=== PATIENT | female | born 1955 | race Caucasian/White ===

== ENCOUNTER 2017-04-02 17:46 | Emergency (ER) | payer BC ==
[2017-04-02 17:54] VITALS: BP 145/95
[2017-04-02] MEDS ORDERED: Ipratropium 0.5MG/2.5ML NEB* 0.5 MG/2.5 ML NEB.SOLN INH ONE (18:07)
[2017-04-02] MEDS ORDERED: Albuterol 2.5 MG/3 ML NEB.SOL* (0.083%) INH ONE (18:07)
--- NOTE | 2017-04-02 18:16 | UC ---
Respiratory Complaint HPI - HPI Summary HPI Summary: 62 yo female with a 2 day hx of cough/wheezing no CP or SOB no F/C no n/v/d - History of Current Complaint Chief Complaint: UCRespiratory Stated Complaint: THROAT CONGESTION Time Seen by Provider: 04/02/17 17:58 Hx Obtained From: Patient Onset/Duration: Gradual Onset, Lasting Days Timing: Constant Severity Initially: Mild Severity Currently: Moderate Pain Intensity: 2 Pain Scale Used: 0-10 Numeric Character: Cough: Nonproductive Aggravating Factors: Nothing Alleviating Factors: Bronchodilator Associated Signs And Symptoms: Positive: Wheezing - Allergies/Home Medications Allergies/Adverse Reactions: Allergies Allergy/AdvReac Type Severity Reaction Status Date / Time Chlorhexidine Allergy Severe Blisters Verified 04/02/17 17:54 [From ChloraPrep One Step] Isopropyl Alcohol Allergy Severe Blisters Verified 04/02/17 17:54 [From ChloraPrep One Step] Cefazolin [From Ancef] Allergy ANAPHYLATIC Verified 04/02/17 17:54 RXN Molds & Smuts Allergy UPPER RESP Verified 04/02/17 17:54 SUNFLOWERS Allergy ANAPHYLACTIC Uncoded 06/11/13 15:54 RXN Home Medications: Home Medications Acetaminophen [Mapap] 1,000 mg PO PRN 04/02/17 [History] Albuterol HFA INHALER* [Ventolin HFA Inhaler*] PRN 04/02/17 [History] Famotidine TAB* [Pepcid 20 MG TAB*] 10 mg PO PRN 04/02/17 [History] diPHENhydraMINE PO* [Benadryl PO 25 MG TAB*] 25 mg PO PRN 04/02/17 [History] PMH/Surg Hx/FS Hx/Imm Hx Previously Healthy: Yes - DJD Respiratory History: Asthma - Surgical History Surgical History: Yes Surgery Procedure, Year, and Place: TOTAL Rt KNEE 2005, Lt TOTAL KNEE-= 2009 [facility] REPAIR - TOTAL OF 5 KNEE SURGERIES [facility] - 1989 GASTROPLASTY - 1987 TUBAL LIGATION - 1980 - Social History Alcohol Use: None Substance Use Type: None Smoking Status (MU): Never Smoked Tobacco Review of Systems Constitutional: Negative Skin: Negative Eyes: Negative ENT: Negative Respiratory: Cough Cardiovascular: Negative Gastrointestinal: Negative Genitourinary: Negative Motor: Negative Neurovascular: Negative Musculoskeletal: Arthralgia Neurological: Negative Psychological: Negative All Other Systems Reviewed And Are Negative: Yes Physical Exam Triage Information Reviewed: Yes Appearance: Well-Appearing, No Pain Distress, Well-Nourished Vital Signs: Initial Vital Signs Temp 99.7 F 04/02/17 17:49 Pulse 106 04/02/17 17:49 Resp 20 04/02/17 17:49 BP 145/95 04/02/17 17:49 Pulse Ox 100 04/02/17 17:49 Vital Signs Reviewed: Yes Eyes: Positive: Conjunctiva Clear ENT: Positive: Hearing grossly normal, TMs normal. Negative: Nasal congestion, Nasal drainage, Tonsillar exudate, Trismus, Muffled/hoarse voice Neck: Positive: Supple, Nontender Respiratory: Positive: No respiratory distress, No accessory muscle use, Wheezing Cardiovascular: Positive: RRR, No Murmur Musculoskeletal: Positive: Strength Intact, No Edema Neurological: Positive: Alert Psychological Exam: Normal Skin Exam: Normal UC Diagnostic Evaluation - Laboratory O2 Sat by Pulse Oximetry: 100 - normal/hypoxic Re-Evaluation - Re-Evaluation First Eval Re-Evaluation Time: 18:41 Change: Improved - subjectively much better/lungs CTA Respiratory Course/Dx - Differential Dx/Diagnosis Provider Diagnoses: bronchospasm-suspect allergen mediated Discharge - Discharge Plan Condition: Stable Disposition: HOME Prescriptions: Prednisone [Deltasone] 40 mg PO DAILY #6 tab Patient Education Materials: Bronchospasm (ED) Referrals: Franci Ewing MD [Primary Care Provider] - 3 Days Additional Instructions: use your inhaler as directed recheck for new or worsening symptoms
[2017-04-02] MEDS ORDERED: predniSONE TAB* 20 MG PO ONE (18:39)
== END 2017-04-02 18:51 | disposition home or self-care (01) ==
LOC: UCEAST 17:46
DX: J45.909 Unspecified asthma, uncomplicated (principal); M19.90 Unspecified osteoarthritis, unspecified site; J98.01 Acute bronchospasm
CPT/HCPCS: 99213; G0463; J7512; J7644

== ENCOUNTER 2024-02-02 05:41 | Observation (INO) ==
[~2024-02-02 05:41] MED LIST: NS 0.45% 1000 ml BAG 1,000 ML IV SCH; Naloxone 0.4 mg VIAL 0.4 mg/ml 1 ml VIAL IV PRN; Ondansetron 4 mg VIAL 2 MG/ML 2 ml VIAL IV PRN
[2024-02-02] MEDS ORDERED: Tranexamic Acid 1 GM/100ML BAG 2,000 MG/200 ML BAG IV ONE (06:10)
[2024-02-02] MEDS ORDERED: Clindamycin 900 MG/50 **NS BAG 900 MG/50 ML BAG ONE (06:10)
[2024-02-02 06:33] LABS: Rapid COVID-19 Molecular Undetected (Undetected)
[2024-02-02] MEDS ORDERED: Dexamethasone IV 4 MG/ML VIAL 1 ml VIAL ONE (06:33)
[2024-02-02] MEDS ORDERED: Ondansetron 4 mg VIAL 2 MG/ML 2 ml VIAL ONE (06:33)
[2024-02-02] MEDS ORDERED: Propofol 10 MG/ML 20 ML BTL ONE (06:33)
[2024-02-02] MEDS ORDERED: Sodium Chloride 0.9% 10 ML ONE (06:35)
[2024-02-02] MEDS ORDERED: Lidocaine 2% PF 5 ML VIAL ONE (06:36)
[2024-02-02] MEDS ORDERED: fentaNYL 100 mcg/2 ml 50 MCG/ML VIAL ONE ×2 (06:37→12:11)
[2024-02-02] MEDS ORDERED: Midazolam 2 mg/2 ml VIAL 1 mg/ml 2 ml VIAL (2 mg) ONE (06:37)
[2024-02-02] MEDS ORDERED: Rocuronium 50 mg VIAL 10 mg/ml 5 ml VIAL (50 mg) ONE (06:37)
[2024-02-02] MEDS ORDERED: Phenylephrine IV 10 MG/ML 1 ml VIAL ONE (06:39)
[2024-02-02] MEDS ORDERED: Sevoflurane BOTTLE ONE (06:48)
[2024-02-02] MEDS ORDERED: ROPIVACAINE 5 MG/ML 30 ML BTL (0.5%) ONE (07:01)
[2024-02-02] MEDS ORDERED: Famotidine IV 10 MG/ML 2 ml VIAL (20 mg) ONE (07:33)
[2024-02-02] MEDS ORDERED: Magnesium Hydroxide LIQ 30 ML UDC PO PRN (08:33)
[2024-02-02] MEDS ORDERED: Lactulose 30 ml UDC PO PRN (08:33)
[2024-02-02] MEDS ORDERED: Ondansetron ODT 4 mg TAB 4 MG TAB PO PRN (08:33)
[2024-02-02] MEDS ORDERED: Calcium Carb (TUMS) 500 mg CHEW TAB PO PRN ×2 (08:33→17:00)
[2024-02-02] MEDS ORDERED: Ondansetron 4 mg VIAL 2 MG/ML 2 ml VIAL IV PRN (08:33)
[2024-02-02] MEDS ORDERED: Morphine 2 MG/ML SYRINGE IV PRN (08:33)
[2024-02-02] MEDS: fentaNYL 100 mcg/2 ml 50 MCG/ML VIAL IV PRN (12:12)
[2024-02-02] MEDS: Buffered Lidocaine 1% SYRIN 1 ml INTRADERM ONE (13:48)
[2024-02-02] MEDS: Vitamin THERAPEUTIC TAB PO SCH (13:49)
[2024-02-02] MEDS: Acetaminophen IV 1 GM/100ML 1,000 MG/100 ML BAG IV ONE (13:49)
[2024-02-02] MEDS: Magnesium Hydroxide LIQ 30 ML UDC PO SCH (13:49)
[2024-02-02] MEDS: Lactated Ringers 1000 ml BAG 1,000 ML IV SCH ×2 (13:50)
[2024-02-02] MEDS: Clindamycin 900 MG/D5W BAG 900 MG/50 ML BAG IVPB SCH (16:06)
[2024-02-03 06:06] LABS: Hematocrit 31.4 % (35-45); Hemoglobin 10.7 g/dL (11.5-14.3); Mean Platelet Volume 7.9 fL (7.5-11.2); Platelet Count 213 10^3/uL (150-450)
[2024-02-03 06:22] LABS: Calcium 8.4 mg/dL (8.6-10.3); Creatinine, Serum 0.75 mg/dL (0.51-0.95); Potassium 4.1 mmol/L (3.5-5.0); eGFR CKD-EPI 86.1 (>60)
[2024-02-03 10:17] VITALS: BP 112/77
== END 2024-02-03 11:28 | disposition home or self-care (01) ==
LOC: SSU 05:41 → OR 05:41 → SSU 08:34
PROVIDERS: ADMIT Orthopaedic Surgery Adult Reconstructive Orthopaedic Surgery; ATTEND Orthopaedic Surgery Adult Reconstructive Orthopaedic Surgery